=== PATIENT | female | born 2000 | race Two or more races ===

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

== ENCOUNTER → 2019-02-01 20:23 | Emergency (ER) | payer OTHER ==
[~2019-02-01 20:23] MED LIST: NS 0.9% 1000 ML** 1,000 ML IV ONE
--- NOTE | 2019-02-01 20:49 | ED ---
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 Associated sx: syncope 2x, diarrhea 4x, SOB, slurred speech. She remembers using the bathroom and getting up to wash her hands, and then waking up on the floor. The CP didn't begin until after the syncopal episode. Pt was watching a basketball game at the [facility]. She has not had episodes of syncope like this previously. PMHx: hydrocephalus with shunt, sz. Sees Dr. Scott, neurologist and someone in [place]. - History of Current Complaint Chief Complaint: EDChestPainROMI Time Seen by Provider: 02/01/19 20:42 Hx Obtained From: Patient, Other: - significant other Hx Last Menstrual Period: 10/19/17 Onset/Duration: Started Hours Ago, Still Present Timing: Constant, Lasting Hours Initial Severity: Severe Current Severity: Severe Pain Intensity: 10 Pain Scale Used: 0-10 Numeric Chest Pain Location: Left Anterior Associated Signs and Symptoms: Positive: Shortness of Breath, Syncope - 2x, Other: - pos: diarrhea 4x, slurred speech - Allergy/Home Medications Allergies/Adverse Reactions: Allergies Allergy/AdvReac Type Severity Reaction Status Date / Time aloe Allergy See Comment Verified 07/07/18 16:41 Penicillins Allergy Rash Verified 07/07/18 16:41 Chocolate Allergy Hives/Diff. Uncoded 06/21/18 23:48 Breathing/I tching Home Medications: Home Medications Fluconazole 150 MG (NF) [Diflucan 150 mg (NF)] 1 tab PO DAILY 02/01/19 [History Confirmed 02/01/19] Sertraline* [Zoloft*] 1 tab PO DAILY 02/01/19 [History Confirmed 02/01/19] PMH/Surg Hx/FS Hx/Imm Hx Previously Healthy: No Endocrine/Hematology History: Denies: Hx Diabetes Cardiovascular History: Reports: Hx Valvular Heart Disease - pulmonary stenosis Denies: Hx Hypertension, Hx Pacemaker/ICD Respiratory History: Denies: Hx Asthma History: Denies: Hx Renal Disease Sensory History: Denies: Hx Hearing Aid Neurological History: Reports: Hx Seizures - not on medication, Other Neuro Impairments/Disorders - hydrocephalus Psychiatric History: Reports: Hx Anxiety, Hx Depression, Hx Panic Disorder - MAY NEED MEDS, Hx of Violent Episodes Against Others, Other Psychiatric Issues/ Disorders - Schizophrenia?, PTSD, bipolar Denies: Hx Eating Disorder - Cancer History Hx Hematologic Symptoms: No - Surgical History Surgery Procedure, Year, and Place: brain surgery - BORE HOLE FOR CYST REMOVAL INFANT,. lumbar puncture last month - Immunization History Date of Influenza Vaccine: 07/2017 Infectious Disease History: No Infectious Disease History: Denies: History Other Infectious Disease, Traveled Outside the [place] in Last 30 Days - Family History Known Family History: Negative: Seizure Disorder, Blood Disorder Family History: NO FAM H/O SZ D/O - Social History Occupation: Unemployed Lives: Dormitory/Roommates - significant other Alcohol Use: None Hx Substance Use: No Substance Use Type: Reports: None Hx Tobacco Use: No Smoking Status (MU): Never Smoked Tobacco Have You Smoked in the Last Year: No Review of Systems Positive: Chest Pain Positive: Shortness Of Breath Positive: Diarrhea Positive: Syncope, Slurred Speech All Other Systems Reviewed And Are Negative: Yes Physical Exam - Summary Physical Exam Summary: Appearance: Well-appearing, Well-nourished, lying in bed comfortably Skin: Warm, dry, no obvious rash Eyes: sclera anicteric, no conjunctival pallor ENT: mucous membranes moist, pharynx appears normal Neck: Supple, nontender Respiratory: Clear to auscultation, no signs of respiratory distress Cardiovascular: Normal S1, S2. No murmurs. Normal distal pulses in tibial and radial bilaterally. Abdomen: Soft, nontender, normal active bowel sounds present Musculoskeletal: Normal, Strength/ROM Intact Neurological: A&Ox3, awake and alert, mentation is normal, speech is fluent and appropriate Psychiatric: affect is normal, does not appear anxious or depressed Triage Information Reviewed: Yes Vital Signs On Initial Exam: Initial Vitals Temp Pulse Resp BP Pulse Ox 97.9 F 72 16 126/73 99 02/01/19 20:30 02/01/19 20:30 02/01/19 20:30 02/01/19 20:30 02/01/19 20:30 Vital Signs Reviewed: Yes Diagnostics - Vital Signs Vital Signs Temp Pulse Resp BP Pulse Ox 02/01/19 20:30 97.9 F 72 16 126/73 99 - Laboratory Lab Statement: Any lab studies that have been ordered have been reviewed, and results considered in the medical decision making process. - Radiology CXR Radiology Interpretation Completed By: ED Physician Summary of Radiographic Findings: No acute process. - EKG 2045 Cardiac Rate: NL - 72 bpm EKG Rhythm: Sinus Rhythm Summary of EKG Findings: NSR at 72 BPM, P waves, QRS complex, and T waves are within normal limits, T waves and intervals are normal, no ischemic changes. 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 Associated sx: syncope 2x, diarrhea 4x, SOB, slurred speech per significant other. PMHx: hydrocephalus, sz, pulmonary stenosis. PE is unremarkable. EKG shows NSR at 72 bpm. CXR shows no acute process. PT WILL BE SIGNED OUT TO DR. HOPPER AT SHIFT CHANGE PENDING LABS AND DISPO. Discharge - Sign-Out/Discharge Documenting (check all that apply): Sign-Out Patient Signing out patient TO: Dilcia Hopper - pending labs and dispo Patient Received Moderate/Deep Sedation with Procedure: No - Discharge Plan Referrals: Reji Mahoney DO [Primary Care Provider] - - Attestation Statements Document Initiated by Scribe: Yes Documenting Scribe: Perry Castro Provider For Whom Scribe is Documenting (Include Credential): Dr. Domenic Leon MD Scribe Attestation: Perry Lam, scribed for Dr. Domenic Leon MD on 02/01/19 at 2148.
--- OUTSIDE RECORDS SUMMARY | 2019-02-01 21:03 | XMS REPORT | Continuity of Care Document ---
:2000 External Reference #:[id number] Author Name Clive Escamilla CNM Address [address] [place] [address] Care Team Providers Name Role Phone Joseph Espinosa M.D. Primary Care Physician Unavailable Payers Date Identification Numbers Payment Provider Subscriber Policy Number: [id number] [facility] Kelechi Hobbs PayID: [id number] [id number] [place] [id number] Advance Directives Description No Information Available Problems Date Description Provider Status Onset: 10/07/2017 Bipolar disorder Clive Escamilla CNM Active Note: Followed by Miguel Onset: 01/19/2019 IUD contraception Clive Escamilla CNM Active Onset: 10/07/2017 Primigravida Clive Escamilla CNM Resolved Resolved: 01/19/2019 Onset: Vaginal delivery Resolved Resolved: 01/19/2019 Onset: Pre-eclampsia Resolved Resolved: 01/19/2019 Onset: Acute posthemorrhagic anemia Resolved Resolved: 01/19/2019 Family History Date Family Member(s) Observation Comments General Heart Disease General Diabetes General Mental Illness Father A&W Mother Heart defect First Son A&W First Brother A&W First Sister A&W Paternal Grandfather Unknown Paternal Grandmother due to Unknown Causes () Maternal Grandfather A&W Maternal Grandmother Unknown Social History Type Date Description Comments Sex Unknown Education Currently attending 11th grade Marital Status Single Lives With Son Lives With Boyfriend Diet Healthy, Well Balanced Pets None Occupation Homemaker Cigarette Use Does Not Smoke Cigarettes ETOH Use Denies alcohol use Recreational Drug Use Denies Drug Use Tobacco Use Start: Unknown Patient has never smoked Smoking Status Reviewed: 01/19/19 Patient has never smoked Seat Belt/Car Seat Always uses seat belt Currently Active Patient is currently sexually active Contraceptive Methods None STD's 08/2016 Trichomoniasis Allergies, Adverse Reactions, Alerts Date Description Reaction Status Severity Comments 01/19/2019 Penicillin Difficulty breathing, Difficulty Active Severe swallowing, Tongue swelling 11/19/2017 NKDA Inactive Medications Medication Date Status Form Strength Qnty SIG Indications Ordering Provider Metronidazole 01/19 Active Gel 0.75% 70gm one applicator N76.0 intravaginally Andi, every night at [facility] bedtime x 5 days Fluconazole 01/19 Active Tablets 150mg 2tabs 1 by mouth x 1 N76.0 dose now. february Andi, repeat in 2-3 CNM days as needed persistent sx of vaginal yeast Kyleena 09/30 Active IUD 19.5mg Baclselwyn , MD La Nena Lamictal Active Tablets 25mg 75mg daily / Loestrin 11/07 03/26 Hx Tablets 1-20mg-mc 21tab Take 1 Tablet Erin (21) g s By Mouth Every Delgado, - Day [facility] 09/21 Junel 11/07 11/19 Hx Tablets 1-20mg-mc 28tab 1 by mouth Erin g s every day Danny, - [facility] 03/26 Augmentin 10/21 Hx Tablets 875-125mg 20tab 1 by mouth Erin /2017 s twice a day Danny, - [facility] 11/19 Docusate 10/21 Hx Capsules 100mg 60cap 1 tab by mouth Erin Sodium s twice a day Danny, - [facility] 04/08 Ferrous 10/14 Hx Tablets 324(37.5F Twice Daily Unknown Gluconate e) mg - 11/19 Ferrous 08/27 Hx Tablets 324(38Fe) 30tab one tablet by Octavio Gluconate mg s mouth once a Tate, - day [facility] 10/21 Zatean-PN Dha 07/29 Hx Capsules 27-0.6-0. 30cap 1 by mouth Sue 4-300mg s every day.ok to Mata, - substitute 04/08 vitamin covered /2018 by insurance Metronidazole 05/28 Hx Tablets 500mg 14tab 1 tablet by Lanie s mouth, twice a Priscilla, - day x 7 days. LM 07/28 Metronidazole 04/06 Hx Tablets 500mg 4tabs take 4 tablest by mouth on day Priscilla, - one. LM 05/28 Medications Administered in Office Medication Date Status Form Strength Qnty SIG Indications Ordering Provider PT SCRN Tbco Administered Injection Mahrie Id as Non User 019 ETHAN Escamilla PT SCRN Tbco Administered Injection Hanna, Id as Non User 019 MD La Nena PT SCRN Tbco Administered Injection Baclnancy, Id as Non User 018 MD La Nena No PT Tbco Administered Injection Saira SCRN RNG 018 MARCIANO Harvey-C PT SCRN Tbco Administered Injection Saira Id as Non User 018 MARCIANO Harvey-Elizabeth Injection Rho Administered Injection Erin (D) Immune 017 ETHAN Delgado Globulin, Human, One Dose Package Immunizations CPT Code Status Date Vaccine Lot # [id number] Given 08/27/2017 Tetnus, Diptheria Toxoids And Acellular Pertussis, TB2R2 PT > 7Yrs Old [address] Given 08/13/2017 Influenza Vaccine Quadrivalent Preser/Antibiotic [id number] Free Im Use Vital Signs Date Vital Result Comment 01/19/2019 11:12am BP Systolic 112 mmHg BP Diastolic 70 mmHg Body Temperature 98.0 F Height 63 inches 5'3" Weight 206.00 lb BMI (Body Mass Index) 36.5 kg/m2 Last Menstrual Period 2075485 1 Parity 1 11/02/2018 8:29am BP Systolic 118 mmHg BP Diastolic 70 mmHg Height 63 inches 5'3" Weight 212.00 lb BMI (Body Mass Index) 37.6 kg/m2 Last Menstrual Period 9055233 1 Parity 1 09/30/2018 1:23pm BP Systolic 128 mmHg BP Diastolic 80 mmHg Height 63 inches 5'3" Weight 219.00 lb BMI (Body Mass Index) 38.8 kg/m2 1 Parity 1 09/15/2018 12:59pm BP Systolic 116 mmHg BP Diastolic 72 mmHg Height 63 inches 5'3" Weight 213.00 lb BMI (Body Mass Index) 37.7 kg/m2 Last Menstrual Period 7379917 1 Parity 1 08/21/2018 12:00am BP Systolic 118 mmHg BP Diastolic 72 mmHg Body Temperature 98.6 F Heart Rate 89 /min Respiratory Rate 16 /min Weight 210.00 lb 08/20/2018 12:00am Height 64 inches BMI (Body Mass Index) 36.0 kg/m2 04/08/2018 11:00am BP Systolic 120 mmHg BP Diastolic 80 mmHg Height 63 inches 5'3" Weight 209.00 lb BMI (Body Mass Index) 37.0 kg/m2 1 Parity 1 11/19/2017 12:56pm BP Systolic 118 mmHg BP Diastolic 76 mmHg Height 63 inches 5'3" Weight 171.00 lb BMI (Body Mass Index) 30.3 kg/m2 1 Parity 1 11/03/2017 2:13pm BP Systolic 110 mmHg BP Diastolic 80 mmHg Height 63 inches 5'3" Weight 163.00 lb BMI (Body Mass Index) 28.9 kg/m2 1 Parity 1 10/21/2017 9:10am BP Systolic 110 mmHg BP Diastolic 78 mmHg Body Temperature 98.0 F Height 63 inches 5'3" Weight 164.00 lb BMI (Body Mass Index) 29.0 kg/m2 1 Parity 1 10/15/2017 12:00am BP Systolic 127 mmHg BP Diastolic 81 mmHg Body Temperature 97.5 F Heart Rate 97 /min Respiratory Rate 20 /min Height 63 inches Weight 184.00 lb BMI (Body Mass Index) 32.5 kg/m2 04/03/2017 1:30pm BP Systolic 102 mmHg BP Diastolic 66 mmHg Height 63 inches 5'3" Weight 164.00 lb BMI (Body Mass Index) 29.0 kg/m2 1 Parity 0 Results Test Date Facility Test Result H/L Range Note Laboratory test 01/19/2019 [facility] <pending> [place] [address] st: Vaginal Dna [phone] Laboratory test 11/02/2018 [facility] SEE RESULT 1 [place] [address] st: Vaginal Dna BELOW [phone] Laboratory 08/20/2018 N2N/CCD Import Absolute 0.1 10^3/ul 0-0.2 Studies Basophils (auto) Absolute Eosinophils (auto) 0.3 10^3/ul 0-0.6 Absolute Lymphocytes (auto) 2.9 10^3/ul 1.0-4.8 Absolute Monocytes (auto) 1.3 10^3/ul High 0-0.8 Absolute Neutrophils (auto) 8.4 10^3/ul High 1.5-7.7 Alanine Aminotransferase (Alt/SGPT) 30 U/L 7-52 Albumin 4.3 g/dL 3.2-5.2 Albumin/Globulin Ratio 1.3 1-3 Alkaline Phosphatase 101 U/L 34-104 Anion Gap 8 mmol/L 2-11 Aspartate Amino Transf (Ast/Sgot) 21 U/L 13-39 BUN/Creatinine Ratio 10.6 8-20 Basophils (%) (Auto) 0.9 % 0-2 Beta HCG, Quantitative 0.73 mIU/mL Blood Urea Nitrogen 7 mg/dL 6-24 C-Reactive Protein 14.48 mg/L High 0-8.00 Calcium Level 10.0 mg/dL 8.6-10.3 Carbon Dioxide Level 27 mmol/L 22-32 Chloride Level 104 mmol/L 101-111 Creatinine 0.66 mg/dL 0.51-0.95 Eosinophils (%) (Auto) 2.5 % 0-6 Estimated GFR () 139.6 Estimated GFR (Non- 115.4 Globulin 3.2 g/dL 2-4 Glucose Level 92 mg/dL 70-100 Hematocrit 37 % 35-47 Hemoglobin 12.4 g/dL 12.0-16.0 Lipase 50 U/L 11.0-82.0 Lymphocytes (%) (Auto) 22.1 % Low 25-47 Mean Corpuscular Hemoglobin 26 pg Low 27-31 Mean Corpuscular Hemoglobin Concent 34 g/dL 31-36 Mean Corpuscular Volume 78 fL Low 80-97 Mean Platelet Volume 8.7 fL 7.4-10.4 Monocytes (%) (Auto) 9.7 % High 0-7 Neutrophils (%) (Auto) 64.8 % 38-83 Nucleated RBC Absolute Count (auto) 0 10^3/ul Nucleated Red Blood Cells % 0.1 Platelet Count 287 10^3/ul 150-450 Potassium Level 3.8 mmol/L 3.5-5.0 Red Blood Count 4.73 10^6/ul 4.00-5.40 Red Cell Distribution Width 15 % 10.5-15 Sodium Level 139 mmol/L 135-145 Total Bilirubin 0.30 mg/dL 0.2-1.0 Total Protein 7.5 g/dL 6.4-8.9 White Blood Count 13.0 10^3/ul High 3.5-10.8 Laboratory Studies 08/20/2018 N2N/CCD Import Urine Specific 1.012 1.010- 1.030 [place] Urine pH 6.0 5-9 Laboratory test 04/08/2018 [facility] HCG < 0.60 2 [place] [address] mIU/mL [phone] Thyroid Function 04/08/2018 [facility] Thyroid Stim 1.7 mIU/L 0.5-4. 3 [place] [address] Hormone 3 [phone] Laboratory 10/15/2017 N2N/CCD Import Absolute 0.1 10^3/ul 0-0.2 Studies Basophils (auto) Absolute Eosinophils (auto) 0.2 10^3/ul 0-0.6 Absolute [...] 17.0 10^3/ul High 3.5-10.8 Laboratory Studies 10/11/2017 N2N/CCD Import Alanine Aminotransferase 19 U/ L 7-52 (Alt/SGPT) Albumin 3.3 g/dL 3.2-5.2 Albumin/Globulin Ratio 1.1 1-3 Alkaline Phosphatase 195 U/L High 34-104 Aspartate Amino Transf (Ast/Sgot) 26 U/L 13-39 Globulin 3.1 g/dL 2-4 Total Bilirubin 0.40 mg/dL 0.2-1.0 Total Protein 6.4 g/dL 6.4-8.9 Uric Acid 6.9 mg/dL High 2.3-6.6 Laboratory test 10/11/2017 [facility] Rupture of Positive 4 [place] [address] Membranes [phone] Laboratory Studies 10/10/2017 N2N/GreenButton Import Urine Collection 24 Time Urine Random Total Protein 61 mg/dL Urine Total Volume 1150 mL Total Protein 24HR 10/10/2017 [facility] Urine Collection Time 24 [place] [address] [phone] Urine Total Volume 1150 mL Urine Random Total Protein 61 mg/dL Urine Total Protein/24HR 701 mg/24Hr High 0-165 CBC With No 10/10/2017 [facility] White Blood 7.6 10^3/uL N 3.5-10.8 [place] [address] Count [phone] Red Blood Count 4.35 10^6/uL N 4.0-5.4 Hemoglobin 11.4 g/dL Low 12.0-16.0 Hematocrit 34 % Low 35-47 Mean Corpuscular Volume 78 fL Low 80-97 Mean Corpuscular Hemoglobin 26 pg Low 27-31 Mean Corpuscular HGB Conc 34 g/dL N 31-36 Red Cell Distribution Width 22 % High 10.5-15 Platelet Count 120 10^3/uL Low 150-450 Mean Platelet Volume 11 um3 High 7.4-10.4 Laboratory test 10/10/2017 [facility] Uric Acid 6.7 mg/dL High 2.3-6.6 5 [place] [address] [phone] Comp Metabolic 10/10/2017 [facility] Sodium 135 mmol/L N 133- 145 [place] [address] [phone] Potassium 4.1 mmol/L N 3.5-5.0 Chloride 104 mmol/L N 101-111 Co2 Carbon Dioxide 22 mmol/L N 22-32 Anion Gap 9 mmol/L N 2-11 Glucose 79 mg/dL N 70-100 Blood Urea Nitrogen 9 mg/dL N 6-24 Creatinine 0.66 mg/dL N 0.51-0.95 BUN/Creatinine Ratio 13.6 N 8-20 Calcium 9.0 mg/dL N 8.6-10.3 Total Protein 6.0 g/dL Low 6.4-8.9 Albumin 3.3 g/dL N 3.2-5.2 Globulin 2.7 g/dL N 2-4 Albumin/Globulin Ratio 1.2 N 1-3 Total Bilirubin 0.30 mg/dL N 0.2-1.0 Alkaline Phosphatase 198 U/L High 34-104 Alt 15 U/L N 7-52 Ast 20 U/L N 13-39 Egfr Non- 116.6 >60 Egfr 150.0 >60 6 Laboratory test 09/24/2017 [facility] Genital For SEE RESULT 7 [place] [address] GRP B Strep BELOW [phone] Only Laboratory test 09/24/2017 [facility]/Y SEE RESULT 8 [place] [address] east: Vaginal BELOW [phone] Dna Urine Culture And 07/28/2017 [facility] Urine Culture SEE RESULT 9 [place] [address] BELOW [phone] Type And Screen 07/28/2017 [facility] [place] O [place] [address] Type [phone] Antibody Screen NEGATIVE N Laboratory test 07/28/2017 [facility] Glucose 1 HR 92 mg/dL N 70-160 10 [place] [address] Post Prandial [phone] CBC With No 07/28/2017 [facility] White Blood 11.8 High 3.5- 10.8 [place] [address] Count 10^3/uL [phone] Red Blood Count 3.75 10^6/uL Low 4.0-5.4 Hemoglobin 9.7 g/dL Low 12.0-16.0 Hematocrit 30 % Low 35-47 Mean Corpuscular Volume 79 fL Low 80-97 Mean Corpuscular Hemoglobin 26 pg Low 27-31 Mean Corpuscular HGB Conc 33 g/dL N 31-36 Red Cell Distribution Width 14 % N 10.5-15 Platelet Count 224 10^3/uL N 150-450 Mean Platelet Volume 11 um3 High 7.4-10.4 Laboratory test 04/30/2017 [facility]: SEE 11 [place] [address] Vaginal Dna RESULT [phone] BELOW Urine Culture And 04/03/2017 [facility] Urine Culture SEE 12 [place] [address] RESULT [phone] BELOW Parvovirus B19 04/03/2017 [facility] Parvovirus (B19) IgG 0.22 N <0. 13 [facility] [place] [address] Antibody index 90 [phone] Parvovirus (B19) IgM Antibody 0.12 index N <0.90 14 Parvovirus Interpretation See Comment N 15 Laboratory 04/03/2017 [facility] Hepatitis C Nonreactive N Nonreactive 16 [place] [address] Antibody [phone] Lead 04/03/2017 [facility] Lead <1.0 g/dL N 0.0-4.9 17 [place] [address] [phone] HIV 1/2 AB 04/03/2017 [facility] HIV 1 2 Nonreactive N Nonreactive 18 [place] [address] Antibody [phone] Type And 04/03/2017 [facility] Patient O [place] [address] Blood Type [phone] Antibody Screen NEGATIVE N CBC With No 04/03/2017 [facility] White Blood 18.4 10^3/uL High 3.5-10.8 [place] [address] Count [phone] Red Blood Count 4.67 10^6/uL N 4.0-5.4 Hemoglobin 12.3 g/dL N 12.0-16.0 Hematocrit 38 % N 35-47 Mean Corpuscular Volume 80 fL N 80-97 Mean Corpuscular Hemoglobin 26 pg Low 27-31 Mean Corpuscular HGB Conc 33 g/dL N 31-36 Red Cell Distribution Width 15 % N 10.5-15 Platelet Count 243 10^3/uL N 150-450 Mean Platelet Volume 10 um3 N 7.4-10.4 PNL No 04/03/2017 [facility] Rubella Screen Immune IU/ mL N Immune 19 [place] [address] [phone] Hemoglobin A1c 4.9 % N Less than 6.0 20 Hepatitis B Surface Ag Nonreactive N Nonreactive 21 Syphillis Igg W/Reflex RPR Nonreactive N Nonreactive 22 Ferney Plus 04/03/2017 [employer] Abcc8-related hyperinsulinism Negative N achromatopsia Negative N alkaptonuria Negative N alpha-1 antitrypsin deficiency Negative N alpha-mannosidosis Negative N alpha-sarcoglycanopathy Negative N Andermann syndrome Negative N Arsacs Negative N aspartylglycosaminuria Negative N ataxia with vitamin E deficiency Negative N ataxia-telangiectasia Negative N Bardet-Biedl syndrome, BBS1-related Negative N Bardet-Biedl syndrome, [id number] Negative N beta-sarcoglycanopathy Negative N biotinidase deficiency Negative N Tolbert syndrome Negative N Radha disease Negative N carnitine palmitoyltransferase Ia deficiency Negative N carnitine palmitoyltransferase II deficiency Negative N cartilage-hair hypoplasia Negative N choroideremia Negative N citrullinemia type 1 Negative N CLN3-related neuronal ceroid lipofuscinosis Negative N CLN5-related neuronal ceroid lipofuscinosis Negative N Douglas syndrome Negative N congenital disorder of glycosylation type Ia Negative N congenital disorder of glycosylation type Ib Negative N congenital Lao nephrosis Negative N Costeff optic atrophy syndrome Negative N cystic fibrosis Negative N cystinosis Negative N D-bifunctional protein deficiency Negative N dihydropyrimidine dehydrogenase deficiency Negative N factor V Leiden thrombophilia Negative N factor XI deficiency Negative N familial dysautonomia Negative N familial Mediterranean fever Negative N Fanconi anemia type C Negative N galactosemia Negative N Gaucher disease Negative N GJB2-related DFNB1 nonsyndromic hearing loss and deafness Negative N zjcjhwd-5-cborpfpyf dehydrogenase deficiency Negative N glutaric acidemia type 1 Negative N glycogen storage disease type Ia Negative N glycogen storage disease type Ib Negative N glycogen storage disease type III Negative N glycogen storage disease type V Negative N Gracile syndrome Negative N Hadha-related disorders Negative N Hb beta chain-related hemoglobinopathy Negative N hereditary fructose intolerance Negative N Herlitz junctional epidermolysis bullosa, Lama3-related Negative N Herlitz junctional epidermolysis bullosa, Lamb3-related Negative N Herlitz junctional epidermolysis bullosa, Lamc2-related Negative N hexosaminidase A deficiency Negative N Hfe-associated hereditary hemochromatosis Negative N homocystinuria caused by cystathionine beta-synthase deficiency Negative N hypophosphatasia, autosomal recessive Negative N inclusion body myopathy 2 Negative N isovaleric acidemia Negative N Carlton syndrome 2 Negative N Krabbe disease Negative N lipoamide dehydrogenase deficiency Negative N maple syrup urine disease type 1B Negative N medium chain acyl-CoA dehydrogenase deficiency Negative N megalencephalic leukoencephalopathy with subcortical cysts Negative N metachromatic leukodystrophy Negative N mild hyperhomocysteinemia caused by MTHFR deficiency Positive High 23 mucolipidosis IV Negative N mucopolysaccharidosis type I Negative N kclowe-jks-phsqi disease Negative N Neb-related nemaline myopathy Negative N Kerwin-Pick disease type C Negative N Kerwin-Pick disease, SMPD1-associated Negative N Nijmegen breakage syndrome Negative N Northern epilepsy Negative N [id number]-mvxwoty disorders Negative N Pendred syndrome Negative N Pex1-related Zellweger syndrome spectrum Negative N phenylalanine hydroxylase deficiency Negative N PKHD1-related autosomal recessive polycystic kidney disease Negative N polyglandular autoimmune syndrome type 1 Negative N Pompe disease Negative N PPT1-related neuronal ceroid lipofuscinosis Negative N primary carnitine deficiency Negative N primary hyperoxaluria type 1 Negative N primary hyperoxaluria type 2 Negative N Prop1-related combined pituitary hormone deficiency Negative N prothrombin thrombophilia Negative N pseudocholinesterase deficiency Negative N pycnodysostosis Negative N rhizomelic chondrodysplasia punctata type 1 Negative N Salla disease Negative N Segawa syndrome Negative N short chain acyl-CoA dehydrogenase deficiency Negative N Sjogren-Greg syndrome Negative N Nbkcq-Ijhcg-Dmjow syndrome Negative N spinal muscular atrophy Negative N 24 steroid-resistant nephrotic syndrome Negative N sulfate transporter-related osteochondrodysplasia Negative N TPP1-related neuronal ceroid lipofuscinosis Negative N tyrosinemia type I Negative N Usher syndrome type 3 Negative N very long chain acyl-CoA dehydrogenase deficiency Negative N Eduardo disease Negative N X-linked juvenile retinoschisis Negative N PDF Report SEE IMAGE SCR+Sex 04/03/2017 [employer] Chromosome 13 Negative N 25 Chrom Analysis Inform Aneuploidy Chromosome 18 Aneuploidy Negative N 26 Chromosome 21 Aneuploidy Negative N 27 Sex Chromosome Analysis Male N 28 PDF Report SEE IMAGE GC/Chlamydia Dna 04/03/2017 [facility] Chlamydia Negative [place] [address] trachomatis Rna [phone] Neisseria gonorrhoeae (GC) Rna Negative N Negative Laboratory test 04/03/2017 [facility]: SEE RESULT 29 [place] [address] Vaginal Dna BELOW [phone] 1 SEE RESULT BELOW Name: KELECHI HOBBS : [address]: La Nena Ferreira MD Acct: [id number] Unit: [id number] AGE: 18 Location: [facility] Re11/02/18 SEX: F Status: REG REF SPEC: [id number] MATTHIEU: 11/02/[address] [facility] [address]: La Nena Ferreira MD REQ: [id number] RECD: 11/02/18 STATUS: COMP _ SOURCE: VAGINAL SPDESC: ORDERED: He,Yeast DNA, Trich DNA Would you like to order Trichomonas Vaginalis testing? Yes Procedure Result Reported Site [facility]/Yeast: Vaginal DNA Final 11/03/18- 0959 ML Organism 1 Negative Gardnerella Organism 2 [...] or failure. Trichomonas: Vaginal DNA Probe Final 11/03/18958 ML Organism 1 Negative Trichomonas CONTINUED ON NEXT PAGE DEPARTMENT OF PATHOLOGY, [address] [place] [address] Andre Ingram M.D. Director CEE # [id number] Patient: BAYKELECHI [id number] (Continued) Specimen: [id number] Collected: 11/02/18 Received: 11/02/18 (Continued) Procedure Result Reported Site Trichomonas: Vaginal DNA Probe Final (continued) 11/03/18958 The presence or absence of T. vaginalis cannot be used as a test for therapeutic success or failure. * ML - [facility] . END OF REPORT DEPARTMENT OF PATHOLOGY, [address] [place] [address] Andre Ingram M.D. Director [facility] # [id number] 2 <5.0 Negative 5.0 - 25.0 Indeterminate (Repeat testing recommended after 72 hours) >25.0 Positive Perimenopausal women can display HCG levels of up to 20 mIU/mL 3 Test Performed by: [facility] [place] [address] 4 A POSITIVE result indicates probable membrane rupture. 5 [facility] [address] skaggs 6 Because ethnic data is not always readily [...] 15-29 5 Kidney failure <15 (or dialysis) 7 SEE RESULT BELOW Name: KELECHI HOBBS : [address]: Kash Mesa MD Acct: [id number] Unit: [id number] AGE: 17 Location: [facility] Re09/24/17 SEX: F Status: REG REF SPEC: [id number] MATTHIEU: 09/24/17-[address] [facility] [address]: Kash Mesa MD REQ: [id number] RECD: 09/24/17 STATUS: COMP _ SOURCE: LAQUITA/VICTOR M/RE SPDESC: ORDERED: Agapito Chilel Scrn COMMENTS: [id number] QUERIES: Is Patient Penicillin Allergic? Y Is patient penicillin allergic and/or sensitivities needed? Y Provider Requisition # C77#[id number] Procedure Result Reported Site Group B Strep Culture Screen Final 09/26/17- 1226 ML Group B Strep Screen Negative * ML - MAIN LAB ([facility]) . END OF REPORT * ML=Testing performed at Main Lab DEPARTMENT OF PATHOLOGY, [address] [place] [address] Andre Ingram M.D. Director [facility] # [id number] 8 SEE RESULT BELOW Name: KELECHI HOBBS : [address]: Kash Mesa MD Acct: [id number] Unit: [id number] AGE: 17 Location: [facility] Re09/24/17 SEX: F Status: REG REF SPEC: [id number] MATTHIEU: 09/24/17-[address] [facility] [address]: Kash Mesa MD REQ: [id number] RECD: 09/24/17 STATUS: COMP _ [facility] ORDERED: He,Yeast DNA, Trich DNA COMMENTS: [id number] Procedure Result Reported Site [facility]/Yeast: Vaginal DNA [...] performed at Main Lab DEPARTMENT OF PATHOLOGY, [address] [place] [address] Andre Inrgam M.D. Director [facility] # [id number] Patient: KELECHI HOBBS [id number] (Continued) Specimen: [id number] Collected: 09/24/17-1335 Received: 09/24/17160 (Continued) Procedure Result Reported Site Trichomonas: Vaginal DNA Probe Final (continued) 09/25/17- 1204 The presence or absence of T. vaginalis cannot be used as a test for therapeutic success or failure. * ML - MAIN LAB ([facility]) . END OF REPORT * ML=Testing performed at Main Lab DEPARTMENT OF PATHOLOGY, [address] [place] [address] Andre Ingram M.D. Director [facility] # [id number] 9 SEE RESULT BELOW Name: KELECHI HOBBS : [address]: Chantelle Delgado CNM Acct: [id number] Unit: [id number] AGE: 16 Location: [facility] Re07/28/17 SEX: F Status: REG REF SPEC: [id number] MATTHIEU: 07/28/[address]: Chantelle Delgado CNM REQ: [id number] RECD: 07/28/17 STATUS: COMP _ SOURCE: URINE SPDES: ORDERED: Urine Culture COMMENTS: [id number] Procedure Result Reported Site Urine Culture Final 07/29/17- 1332 ML No growth of clinically significant organisms * ML - MAIN LAB ([facility]) . END OF REPORT * ML=Testing performed at Main Lab DEPARTMENT OF PATHOLOGY, [address] [place] [address] Andre Ingram M.D. Director [facility] # [id number] 10 [id number] 11 SEE RESULT BELOW Name: KELECHI HOBBS : [address]: Octavio CORRAL Acct: [id number] Unit: [id number] AGE: 16 Location: [facility] Re04/30/17 SEX: F Status: REG REF SPEC: [id number] MATTHIEU: 04/30/17-[address] [facility] [address]: Octavio Tate [facility] REQ: [id number] RECD: 05/01/17-5 STATUS: COMP _ SOURCE: VAGINAL SPDESC: ORDERED: He,Yeast DNA, Trich DNA COMMENTS: [id number] Procedure Result Reported Site Gardnerella/Yeast: Vaginal DNA [...] performed at Main Lab DEPARTMENT OF PATHOLOGY, [address] [place] [address] Andre Ingram M.D. Director [facility] # [id number] Patient: DEVENDRA HOBBSLAVELLEDANIELLE [id number] (Continued) Specimen: [id number] Collected: 04/30/17-1555 Received: 05/01/17-1215 (Continued) Procedure Result Reported Site Trichomonas: Vaginal DNA Probe Final (continued) 05/02/17- 1428 The presence or absence of T. vaginalis cannot be used as a test for therapeutic success or failure. * ML - MAIN LAB ([facility]) . END OF REPORT * ML=Testing performed at Main Lab DEPARTMENT OF PATHOLOGY, [address] [place] [address] Andre Ingram M.D. Director [facility] # [id number] 12 SEE RESULT BELOW Name: KELECHI HOBBS : [address]: Lanie MCKEON Acct: [id number] Unit: [id number] AGE: 16 Location: [facility] Re04/03/17 SEX: F Status: REG REF SPEC: [id number] MATTHIEU: 04/03/17-[address] [place] [address] DR: Lanie MCKEON REQ: [id number] RECD: 04/03/171268 STATUS: COMP _ SOURCE: URINE [facility]: ORDERED: Urine Culture COMMENTS: [id number] Urine Source: Random Procedure Result Reported Site Urine Culture Final 04/05/17- 1152 ML No growth of clinically significant organisms * ML - MAIN LAB ([facility]) . END OF REPORT * ML=Testing performed at Main Lab DEPARTMENT OF PATHOLOGY, [address] [place] [address] Andre Ingram M.D. Director [facility] # [id number] 13 Negative 14 Negative 15 RESULT: No antibody detected. Test Performed by: [facility] [employer] [address] [address] 16 [id number] ADDITIONAL INFORMATION Testing performed by Inductively Coupled Plasma-Mass Spectrometry (ICP-MS). This test was developed and its performance characteristics determined by [facility] in a manner consistent with CLIA requirements. This test has not been cleared or approved by the U.S. Food and Drug Administration. 18 It is recognized that currently available assays [...] 95% confidence interval of 99.78 to 99.96%. 19 [id number] 20 Therapeutic target for the treatment of diabetes Mellitus patients is <7% HBA1C, and in selective patients <6.0%.Please refer to [place] [employer] Diabetic care guidelines for further information. 21 [id number] 22 Warning: A positive result is not useful for establishing a diagnosis of syphilis. In most situations, such a result may reflect a prior treated infection; a negative result can exclude a diagnosis of syphilis except for incubating or early primary disease. 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 Carriers generally do not experience symptoms. 24 Negative result: NM_000344.3(SMN1):g.98331B=qelhexceij and SMN1: 2 copies. 25 No aneuploidy detected. 26 No aneuploidy detected. 27 No aneuploidy detected. 28 Male: No aneuploidy detected. 29 SEE RESULT BELOW Name: KELECHI HOBBS : [address]: Lanie Wells CM Acct: [id number] Unit: [id number] AGE: 16 Location: [facility] Re04/03/17 SEX: F Status: REG REF SPEC: [id number] MATTHIEU: 04/03/17-[address]: Lanie Wells CM REQ: [id number] RECD: 04/06/17 STATUS: COMP _ SOURCE: VAGINAL SPDESC: ORDERED: He,Yeast DNA, Trich DNA COMMENTS: [id number] Procedure Result Reported Site Gardnerella/Yeast: Vaginal DNA [...] failure. Trichomonas: Vaginal DNA Probe Final 04/06/17- 162 ML Organism 1 POSITIVE TRICHOMONAS CONTINUED ON NEXT PAGE * ML=Testing performed at [facility] Lab DEPARTMENT OF PATHOLOGY, [address] [place] [address] Andre Ingram M.D. Director [facility] # [id number] Patient: DEVENDRA HOBBSABBY [id number] (Continued) Specimen: [id number] Collected: 04/03/17-1518 Received: 04/06/17-1126 (Continued) Procedure Result Reported Site Trichomonas: Vaginal DNA Probe Final (continued) 04/06/17- 1624 The presence or absence of T. vaginalis cannot be used as a test for therapeutic success or failure. * ML - MAIN LAB ([facility]) . END OF REPORT * ML=Testing performed at Main Lab DEPARTMENT OF PATHOLOGY, [address] [place] [address] Andre Ingram M.D. Director [facility] # [id number] Procedures Date Code Description Status 09/30/2018 10636 Echography Transvaginal Completed 09/30/2018 37406 Insert Intrauterine Device Completed 10/12/2017 31527 Obstetric Care Routine Completed 10/10/2017 99320 Non-Stress Test Completed 09/24/2017 94243 Echography Uterus Limited Completed 08/27/2017 37071 Biophysical Profile Without Non Stress Test Completed 08/27/2017 80879 Echography Uterus Follow-Up Or Repeat Completed 08/13/2017 47028 Injection Intramuscular Or Subcutaneous Completed 08/12/2017 [facility] Medical Records, Release Completed 07/28/2017 62666 Injection Intramuscular Or Subcutaneous Completed 04/03/2017 52703 OB Ultrasound First Trimester Completed Encounters Type Date Location Provider Dx Diagnosis Office Visit 01/19/[address] [facility] Clive Escamilla CNM N76.0 Acute vaginitis 11:20a Office Visit 11/02/2018 [facility] [place] Fer[place], R10.2 Pelvic and perineal 8:30a MD pain Office Visit 09/15/2018 [facility] [place] Fer[place], R10.30 Lower abdominal pain, 1:00p unspecified Z30.09 Encounter for oth general coun and advice on contraception Office Visit 04/08/2018 11:20a [facility] Office Saira Harvey, N91.1 Secondary ANP-C amenorrhea Office Visit 10/10/2017 10:33a Delivery Erin Delgado, ETHAN O14.03 Mild to moderate pre-eclampsia, third trimester Plan of Treatment 01/19/2019 - Clive Escamilla, CNMN76.0 Acute vaginitisNew Medication:Metronidazole 0.75 % - one applicator intravaginally every night at bedtime x 5 daysFluconazole 150 mg - 1 by mouth x 1 dose now. may repeat in 2-3 days as needed persistent sx of vaginal yeastComments:Rx's for vaginal yeast and BV sent. Follow-up PRN worsening sx or failure to improve as expected
[2019-02-01 22:03] LABS: ABS Basophils 0.1 10^3/ul (0-0.2); ABS Eosinophils 0.2 10^3/ul (0-0.6); ABS Lymphocytes 2.6 10^3/ul (1.0-4.8); ABS Neutrophils 5.7 10^3/ul (1.5-7.7); ABS Nucleated RBC 0 10^3/ul; Eosinophil % 1.8 %; Hematocrit 35 % (33-41); Hemoglobin 11.6 g/dL (12.0-16.0); Lymphocyte % 27.4 %; Mean Corpuscular HGB Conc 33 g/dL (31-36); Mean Corpuscular Hemoglobin 26 pg (27-31); Mean Corpuscular Volume 78 fL (80-97); Mean Platelet Volume 9.3 fL (7.4-10.4); Nucleated Red Blood Cells % 0; Platelet Count 264 10^3/uL (150-450); Red Blood Count 4.44 10^6 /uL (3.70-4.87); Red Cell Distribution Width 15 % (10.5-15); White Blood Count 9.5 10^3/uL (3.5-10.8)
[2019-02-01 22:15] LABS: Urine Appearance Cloudy; Urine Bilirubin Negative (Negative); Urine Blood Negative (Negative); Urine Color Straw; Urine Glucose Negative (Negative); Urine Ketones Negative (Negative); Urine Nitrite Negative (Negative); Urine Protein Negative (Negative); Urine Specific Gravity 1.003 (1.010-1.030); Urine Urobilinogen Negative (Negative)
[2019-02-01 22:16] LABS: Albumin/Globulin Ratio 1.3 (1-3); BUN/Creatinine Ratio 9.1 (8-20); Calcium 8.9 mg/dL (8.6-10.3); EGFR African American 172.3 (>60); EGFR Non-African American 142.4 (>60); Potassium 3.6 mmol/L (3.5-5.0); Total Bilirubin 0.4 mg/dL (0.2-1.0)
[2019-02-01 22:18] LABS: Troponin I 0.01 ng/mL (<0.04)
--- NOTE | 2019-02-01 23:04 | ED ---
Progress - Progress Note Progress Note: Patient was signed out from Dr. Domenic Leon to Dr. Dilcia Hopper during the 22: 00, 02/01/19 shift change, pending labs. 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 Associated sx: syncope 2x, diarrhea 4x, SOB, slurred speech per significant other. PMHx: hydrocephalus, sz, pulmonary stenosis. PE is unremarkable. EKG shows NSR at 72 bpm. CXR shows no acute process. PT WILL BE SIGNED OUT TO DR. HOPPER AT SHIFT CHANGE PENDING LABS AND DISPO. Pt will be discharged with a dx of syncope. She was instructed to follow up with her PCP tomorrow. - Diagnoses Provider Diagnoses: Syncope Discharge - Sign-Out/Discharge Documenting (check all that apply): Patient Departure - D/C home, Receiving Sign -Out Receiving patient FROM: Domenic Leon - Pending labs Patient Received Moderate/Deep Sedation with Procedure: No - Discharge Plan Condition: Stable Disposition: HOME Patient Education Materials: Syncope (ED) Referrals: Reji Mahoney DO [Primary Care Provider] - 1 Day Additional Instructions: Follow up with your PCP, Dr. Mahoney, tomorrow. PLEASE RETURN TO THE ED IMMEDIATELY FOR WORSENING OR CONCERNING SYMPTOMS. - Billing Disposition and Condition Condition: STABLE Disposition: Home - Attestation Statements Document Initiated by Rosalio: Yes Documenting Scribe: Laith Calderon Provider For Whom Rosalio is Documenting (Include Credential): Dilcia Hopper MD Scribe Attestation: Laith Lam, scribed for Dilcia Hopper MD on 02/02/19 at 0552. Scribe Documentation Reviewed: Yes Provider Attestation: The documentation as recorded by the Laith knight accurately reflects the service I personally performed and the decisions made by , Dilcia Hopper MD Status of Scribe Document: Viewed
[2019-02-01 23:41] VITALS: BP 125/65
== END | disposition home or self-care (01) ==
LOC: ED 20:23
DX: R55 Syncope and collapse (principal); R07.9 Chest pain, unspecified; F41.9 Anxiety disorder, unspecified; F32.9 Major depressive disorder, single episode, unspecified; Z88.0 Allergy status to penicillin
CPT/HCPCS: 36415; 71046; 80053; 81003; 83605; 84484; 85025; 85379; 93005; 96360; 99283

== ENCOUNTER 2019-10-07 19:59 | Emergency (ER) | payer OTHER ==
--- OUTSIDE RECORDS SUMMARY | 2019-10-07 20:17 | XMS REPORT ---
:2000 Author Organization [facility] Care Team Providers Name Role Phone Hitesh Olmos Primary Care Physician Unavailable Allergies, Adverse Reactions, Alerts Allergy Code CodeSystem Reaction Severity Criticality Status Start Substance Date Moderate Medications Medication Medication Medication Start Stop Route Dose Status Fill Code CodeSystem Date Date Instructions sertraline 469859 RxNorm 2019-020 oral 100 mg completed Take 1 tablet 06-23 1 by mouth once tablet a day for 30 once a day(s) day Problems Problem Name Code CodeSystem Alternate Alternate Start End Status Narrative Code CodeSystem Date Date Bipolar 15624440 SNOMED-CT Active affective 3-22 disorder, current episode severe depression without psychotic symptoms Relevant diagnostic tests/laboratory data Narrative No Information Procedures Procedure Code CodeSystem Target Date of Status Service Device Device Device Name Site Procedure Delivery Code Name UID Location Psychotherap 800475 SNOMED-CT () 2019-04-26 complete Mental y, 45 04 d Health- minutes with [address], [id number] Psychotherap [id number] SNOMED-CT () 2019-06-06 complete Mental y, 45 04 d Health- minutes with [address], [phone] Psychotherap [id number] SNOMED-CT () 2019-06-21 complete Mental y, 45 04 d Health- minutes with [facility] patient [address], [phone] Psychotherap 146895 SNOMED-CT () 2019-08-22 complete Mental y, 45 04 d Health- minutes with [facility] patient [address], [id number] Office or [id number] SNOMED-CT () 2019-02-23 complete Mental other 7 d Health- outpatient [facility] visit for [address], of an [facility] [phone] patient, [phone] which requires at least 2 of these 3 solis components: An expanded problem focused history; An expanded problem focused examination; Medical decision making of low SNOMED-CT () 2019-02-28 [facility] [address] [facility], [place], [place], [phone] Encounters/Encounter Diagnoses Encounter Name Encounter Diagnosis Diagnosis Diagnosis Date of Service Code Code Name CodeSystem Diagnosis Delivery Location Psychotherapy - 48435 [id number] Bipolar SNOMED-CT 2019-08-22 Behavioral Individual 30 affective Health min disorder, Clinic [address] current [facility], [place], [place], depression [id number] without psychotic symptoms Vital Signs No Information Social History Element Description Description Start End Code CodeSystem AdditionalInfo Date Date SexAssignedAtBirth Female 1999-10 F AdministrativeGender 0-28 Hospital Discharge Instructions Reason For Referral Medical Equipment FDA Assessments
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
[2019-10-07 20:48] LABS: ABS Basophils 0.1 10^3/ul (0-0.2); ABS Eosinophils 0.1 10^3/ul (0-0.6); ABS Lymphocytes 2.7 10^3/ul (1.0-4.8); ABS Monocytes 1.2 10^3/ul (0-0.8); ABS Neutrophils 10.5 10^3/ul (1.5-7.7); Eosinophil % 0.8 %; Hematocrit 37 % (35-47); Hemoglobin 12.7 g/dL (12.0-16.0); Lymphocyte % 18.2 %; Mean Corpuscular HGB Conc 35 g/dL (31-36); Mean Corpuscular Hemoglobin 28 pg (27-31); Mean Corpuscular Volume 80 fL (80-97); Mean Platelet Volume 8.8 fL (7.4-10.4); Platelet Count 350 10^3/uL (150-450); Red Blood Count 4.57 10^6 /uL (3.70-4.87); Red Cell Distribution Width 14 % (10-15); White Blood Count 14.6 10^3/uL (3.5-10.8)
[2019-10-07 21:17] LABS: ALT 16 U/L (7-52); AST 14 U/L (13-39); Albumin 4.5 g/dL (3.2-5.2); Albumin/Globulin Ratio 1.4 (1-3); Alkaline Phosphatase 107 U/L (34-104); Anion Gap 6 mmol/L (2-11); BUN/Creatinine Ratio 11.1 (8-20); Blood Urea Nitrogen 7 mg/dL (6-24); CO2 Carbon Dioxide 27 mmol/L (22-32); Chloride 105 mmol/L (101-111); EGFR African American 145.8 (>60); EGFR Non-African American 120.5 (>60); Globulin 3.3 g/dL (2-4); Glucose 92 mg/dL (70-100); Potassium 3.5 mmol/L (3.5-5.0); Sodium 138 mmol/L (135-145); Total Protein 7.8 g/dL (6.4-8.9)
[2019-10-07 21:29] LABS: Acetaminophen < 15 mcg/mL; Alcohol < 10 mg/dL (<10); Salicylate < 2.50 mg/dL (<30)
[2019-10-07 21:44] LABS: TSH (Thyroid Stimulating Horm) 1.44 mcIU/mL (0.34-5.60)
[2019-10-07 21:57] LABS: Urine Appearance Cloudy; Urine Bilirubin Negative (Negative); Urine Blood Negative (Negative); Urine Color Yellow; Urine Glucose Negative (Negative); Urine Ketones Negative (Negative); Urine Nitrite Negative (Negative); Urine Protein Negative (Negative); Urine Specific Gravity 1.016 (1.010-1.030); Urine Urobilinogen Negative (Negative)
[2019-10-07 22:00] LABS: Urine Bacteria 1+ (Absent); Urine Red Blood Cell Trace(0-2/hpf) (Absent); Urine Squamous Epithelial Cell Present (Absent); Urine White Blood Cell Trace(0-5/hpf) (Absent)
[2019-10-07 22:15] LABS: Urine Benzodiazepine Screen None Detected (None Detect); Urine Opiates Screen None Detected (None Detect)
[2019-10-07 23:23] VITALS: BP 151/95
== END 2019-10-07 23:10 | disposition home or self-care (01) ==
LOC: ED 19:59
DX: F39 Unspecified mood [affective] disorder (principal); F32.9 Major depressive disorder, single episode, unspecified; F41.9 Anxiety disorder, unspecified; I38 Endocarditis, valve unspecified; Z88.0 Allergy status to penicillin; Z79.899 Other long term (current) drug therapy
CPT/HCPCS: 36415; 80053; 80307; 80320; 80329; 81003; 81015; 84443; 85025; 87086; 99284; G0480